=== PATIENT | male | born 1955 | race Caucasian/White ===

== ENCOUNTER → 2017-06-14 12:58 | Outpatient (CLI) | payer BC ==
--- NOTE | ~2017-06-14 | EC ---
PATIENT:PATRICIA SÁNCHEZ DATE OF SERVICE: 06/14/17 SEX: M MEDICAL RECORD: [id number] DATE OF : 59 LOCATION:[facility] AGE OF PATIENT: 61 ADMISSION DATE: 06/14/17 REFERRING PHYSICIAN: INTERPRETING PHYSICIAN: SHAHRAM ANTON MD ECHOCARDIOGRAM REPORT ECHO CHARGES 4 ECHO COMPLETE Date: 06/14 CLINICAL DIAGNOSIS: CP/HTN/DYSPNEA/ABNORMAL EKG ECHOCARDIOGRAPHIC MEASUREMENTS (adult normal given) AC root (d.<3.7cm) 3.2 cm LV Septum d (<1.2 cm> 0.9 cm Valve Excursion 2.1 cm LV Septum (systole) 1.2 cm Left Atria (s.<4.0cm> 3.2 cm LVPW d(<1.2cm) 1.3 cm RV (d.<2.3cm) 2.4 cm LVPW (sytole) 1.9 cm LV diastole(<5.6CM) 5.1 cm MV E-F(>70mm/sec) cm LV systole 3.3 cm LVOT Diameter 1.8 cm MV exc.(>10mm) cm Est.ejection fraction (50-75%) % DOPPLER: LVIT cm/sec A 74.0 cm/sec E 91.0 cm/sec LA cm/sec RVSP 33.0 mmHg LVOT 146 cm/sec AOP1/2T m/s Asc. Ao 188 cm/sec RVOT 82.0 cm/sec RA cm/sec PA 143 cm/sec AV Gradient Peak 14.1 mmHg AV Mean 6.0 mmHg AV Area 1.7 cm MV Gradient Peak 4.2 mmHg MV Mean 2.0 mmHg MV Area cm COMMENTS: Environmental Specialist: Jeffery CARROLLOE Monorail Helper: 4 Dr. Anton TAPE# PACS Pericardial Effusion N DATE OF SERVICE: PROCEDURE: Transthoracic echocardiogram. FINDINGS: 1. Left ventricular function appears to be preserved at 55%. There is no obvious regional wall motion abnormality. 2. The left atrium is normal size, normal function. 3. The aortic valve is normal. 4. The mitral valve has trace mitral regurgitation. ECHOCARDIOGRAM REPORT [id number] PATRICIA SÁNCHEZ 5. Tricuspid valve has trace tricuspid regurgitation. 6. The right ventricle is normal size, normal function. 7. The right atrium is normal. 8. Pulmonic valve is normal. 9. Inflow characteristics are normal. 10. There is mild left ventricular hypertrophy. CONCLUSIONS: Overall, normal echocardiogram with evidence of mild left ventricular hypertrophy. TRANSINT:[id number] Voice Confirmation ID: [id number] DOCUMENT ID: [id number] SHAHRAM ANTON MD at 1426 CC: [id number] DICTATION DATE: 06/15/17 1210 DISTRICT REPRESENTATIVE: 06/15/17 1244 DEP CLI 06/14/17 [address] [place] [address]
[~2017-06-14 12:58] MED LIST: COREG6.25 MG PO; LIPITOR40 MG PO; PLAVIX75 MG PO
[2017-07-06 07:50] VITALS: BMI 27.6
== END | disposition home or self-care (01) ==
LOC: D.ECHO 12:58
DX: R07.9 Chest pain, unspecified (principal); I10 Essential (primary) hypertension; R06.02 Shortness of breath; R94.31 Abnormal electrocardiogram [ECG] [EKG]; E78.5 Hyperlipidemia, unspecified

== ENCOUNTER → 2017-06-21 16:17 | Outpatient (CLI) | payer BC ==
[2017-06-21 16:45] LABS: CHOL - HDL RATIO 5.1 ratio (2.3-4.9); LDL-HDL RATIO 3.5 ratio (1.5-3.5)
[2017-07-06 07:50] VITALS: BMI 27.6
== END | disposition home or self-care (01) ==
LOC: D.LABREF 16:17
PROVIDERS: Internal Medicine Cardiovascular Disease
DX: E78.5 Hyperlipidemia, unspecified (principal)

== ENCOUNTER 2017-07-06 07:25 | Outpatient (CLI) | payer BC ==
[~2017-07-06] VITALS: Ht 177.8 cm; Wt 87.3 kg
--- NOTE | ~2017-07-06 | HEMODYNAMI ---
PATIENT:PATRICIA SÁNCHEZ MEDICAL RECORD: [id number] : 59 LOCATION:[facility] ADMISSION DATE: 07/06/17 Generatedon:07/06/201710:44 Patient name: PATRICIA SÁNCHEZ Patient #: [id number] SSN: DO B: 1955 Date of study: 07/06/2017 Page: Of Hemodynamic Procedure Report Patient Data Patient Demographics Procedure consent was obtained First Name: PATRICIA Gender: Male Last Name: PRINCESS : 1955 Middle Initial: DENISE Age: 61 year(s) Patient #: [id number] Race: Unknown Additional ID: [id number] Contact details [address]: [address] [place] [address] COURT State: [place] City: [place] Zip code: [address] Admission Admission Data Admission Date: 07/06/2017 Admission Time: 7:25 Procedure Procedure Types Cath Procedure Diagnostic Procedure LHC LHC w/Coronaries Sedation Charges Moderate Sedation up to 15 minutes Procedure Description Procedure Date Procedure Date: 07/06/2017 Procedure Start Time: 10:30 Procedure End Time: 10:39 Procedure Staff Name Function Edilson Tellez MD Performing Physician Nicolle Skinner RT Monitor Maureen Mueller RT Scrub Shena Vásquez RN Nurse Procedure Data Cath Procedure Fluoroscopy Diagnostic fluoroscopy Total fluoroscopy Time: 1.8 time: 1.8 min min Diagnostic fluoroscopy Total fluoroscopy dose: 412 dose: 412 mGy mGy Contrast Material Contrast Material Type Amount (ml) Isovue 300 49 Entry Location Entry Primary Successful Side Size Upsize Upsize Entry Closure Todd ccessful Closure Location (Fr) 1 (Fr) 2 (Fr) Remarks Device Remarks Radial Right 6 Fr Mechanical artery Short Compression Estimated blood loss: 5 ml Diagnostic catheters Device Type Used For End Catheter Placement DIAGNOSTIC Meridian 110cm 5 Multi-vessel Fr catheter ([id number]) Angiography Procedure Complications No complications Procedure Medications Medication Administration Route Dosage Oxygen NC 2 l/min Lidocaine 2% added to field 20 Heparin Flush Bag added to field 2 bags (1000units/500ml NS) 0.9% NaCl I.V. 100 ml/hr Radial Cocktail I.A. 1 syringe (Verapomil 2mg/Nitro 400mcg/Heparin 1500units) Versed I.V. 1 mg Fentanyl I.V. 50 mcg Versed I.V. 1 mg Fentanyl I.V. 50 mcg Hemodynamics Rest Heart Rate: 61 (bpm) Pressure Samples Time Site Value (mmHg) Purpose Heart Use Rate(bpm) 10:33 LV 122/-19,0 EDP 68 Gradients Valve Time Site Site Mean SEP/DFP Peak To Heart Use 1 2 (mmHg) (sec/min) Peak Rate (mmHg) (bpm) Aortic 10:34 LV AO 76 Snapshots Pre Cath Intra NCS Post Cath Vital Signs Time Heart Resp SPO2 etCO2 NIBP (mmHg) Rhythm Pain Sedation Rate (ipm) (%) (mmHg) Status Level (bpm) 10:20:05 62 15 99 35.3 160/85(134) NSR 0 (11) 10(A) , No pain 10:24:27 58 14 98 0 158/77(112) NSR 0 (11) 10(A) , No pain 10:28:51 58 14 98 30.8 155/80(111) NSR 0 (11) 10(A) , No pain 10:33:13 53 13 98 36 148/83(126) NSR 0 (11) 9(A) , No pain 10:37:29 73 13 96 37.5 141/79(112) NSR 0 (11) 10(A) , No pain Medications Time Medication Route Dose Verified Delivered Reason Notes Effectiveness by by 10:23:10 Oxygen NC 2 l/min Edilson Buffie used for Geoff colorado MD 10:23:17 Lidocaine 2% added 20ml Edilson Edilson for local to vial Geoff Tellez MD anesthetic field SCHNEIDER 10:23:23 Heparin Flush added 2 bags Edilson Edilson used for Bag to Geoff Tellez MD procedure (1000units/500ml field SCHNEIDER NS) 10:23:32 0.9% NaCl I.V. 100 Edilson Buffie Per ml/hr Geoff Vásquez RN physician 10:23:55 Versed I.V. 1 mg Edilson Buffie for sedation Geoff Vásquez RN, MD 10:24:01 Fentanyl I.V. 50 mcg Edilson Buffie for sedation Geoff Vásquez RN, MD 10:33:12 Radial Cocktail I.A. 1 Edilson Edilson for (Verapomil syringe Geoff Tellez MD vasodilation 2mg/Nitro MD 400mcg/Heparin 1500units) 10:33:22 Versed I.V. 1 mg Edilson Buffie for sedation Geoff Vásquez RN, MD 10:33:26 Fentanyl I.V. 50 mcg Edilson Chatterjee for sedation Geoff Vásquez RN, MD Procedure Log Time Note 9:59:34 Shena Vásquez RN sent for patient. Start room use. 9:59:35 Time tracking: Regular hours (M-F 7:00 - 5:00) 9:59:41 Plan of Care:Hemodynamics will remain stable., Cardiac rhythm will remain stable., Comfort level will be maintained., Respiratory function will remain adequate., Patient/ family verbilizes understanding of procedure., Procedure tolerated without complication., Recovers from procedure without complications.. 10:18:45 Patient received from Pre/Post Procedure Room to [facility] 2 Alert and oriented. Tansferred to table in Supine position. 10:18:46 Warm blankets applied, and lopez hugger turned on for patient comfort. 10:18:46 Correct patient and procedure confirmed by team. 10:18:48 Signed procedure consent form obtained from patient. 10:18:49 ECG and BP/O2 sat monitors applied to patient. 10:18:50 Vital chart was started 10:18:51 Baseline sample Acquired. 10:18:55 Rhythm: sinus rhythm 10:18:57 Full Disclosure recording started 10:19:01 H&P Date Dictated: 07/06/2017 Within 30 days and on chart., H&P Addendum completed by physician on day of procedure. (MUST COMPLETE FOR ALL OUTPATIENTS). 10:19:03 Pre-procedure instructions explained to patient. 10:19:03 Pre-op teaching completed and patient verbalized understanding. 10:19:04 Family in waiting room. 10:19:06 Patient NPO since Midnight. 10:19:08 Is the patient allergic to Iodine/contrast media? No. 10:19:09 Was the patient premedicated? No 10:19:10 Is patient on blood thinner?Yes 10:19:12 ACC The patient was administered the following blood thiners within the last 24 hours: ACCPlavix 10:19:15 Patient diabetic? No. 10:19:17 Previous problem with sedation/anesthesia? No ? 10:19:19 Snore? Yes 10:19:20 Sleep apnea? No 10:19:21 Deviated septum? No 10:19:21 Opens mouth fully? Yes 10:19:22 Sticks out tongue? Yes 10:19:24 Airway obstruction? No ? 10:19:27 Dentures? No ? 10:19:30 Pre procedure: right dorsailis pedis pulse 1+ Palpable, but thready & weak; easily obliterated 10:19:31 Pre procedure: left dorsailis pedis pulse 1+ Palpable, but thready & weak; easily obliterated 10:19:33 Patient pain scale 0/10 ?. 10:19:38 IV patent on arrival in left forearm with 0.9% NaCl at [facility]. 10:19:40 Lab results completed and on chart. 10:19:45 Right groin area was prepped with chlora-prep and draped in sterile fashion 10:19:46 Alarms reviewed by R. N. 10:19:46 Sharps counted by scrub and verified by R.N. 10:19:48 Physician arrived 10:19:49 --------ALL STOP TIME OUT------ 10:19:49 Final Timeout: patient, procedure, and site verified with staff and physician. All members of the team are in agreement. 10:19:51 Right groin site verified by team. 10:20:08 Physical assessment completed. ASA score P 2 - A patient with mild systemic disease as per Edilson Tellez MD. 10:20:11 Sedation plan: IV Moderate Sedation Medication:Versed, Fentanyl 10:21:24 Use device set Radial Dx or PCI 10:21:25 ACIST Syringe (54028) opened to sterile field. 10:21:25 Medline Cath Pack ([id number]) opened to sterile field. 10:21:26 Bag Decanter () opened to sterile field. 10:21:26 DIAGNOSTIC WIRE .035 260cm J wire ([id number]) opened to sterile field. 10:21:27 ACIST Hand Control (83261) opened to sterile field. 10:21:27 ACIST Manifold (72920) opened to sterile field. 10:21:27 Tegaderm 4 x 4 (1626W) opened to sterile field. 10:21:29 MBrace Wrist Support ([id number]) opened to sterile field. 10:21:30 SHEATH 6Fr Prelude Radial ([id number]) opened to sterile field. 10:23:10 Oxygen 2 l/min NC was administered by Shena Vásquez RN; used for procedure; 10:23:17 Lidocaine 2% 20ml vial added to field was administered by Edilson Tellez MD; for local anesthetic; 10:23:23 Heparin Flush Bag (1000units/500ml NS) 2 bags added to field was administered by Edilson Tellez MD; used for procedure; 10:23:32 0.9% NaCl 100 ml/hr I.V. was administered by Shena Vásquez RN; Per physician; 10:23:55 Versed 1 mg I.V. was administered by Shena Vásquez RN; for sedation; 10:24:01 Fentanyl 50 mcg I.V. was administered by Shena Vásquez RN; for sedation; 10:30:26 Procedure started. 10:30:53 Local anesthetic to right radial artery with Lidocaine 2% by Edilson Tellez MD.INITIAL ACCESS ONLY 10:31:02 A 6 Fr Short sheath was inserted into the Right Radial artery 10:33:01 A DIAGNOSTIC Meridian 110cm 5 Fr catheter ([id number]) was advanced over the wire and used for Multi-vessel Angiography. 10:33:12 Radial Cocktail (Verapomil 2mg/Nitro 400mcg/Heparin 1500units) 1 syringe I.A. was administered by Edilson Tellez MD; for vasodilation; 10:33:22 Versed 1 mg I.V. was administered by Shena Vásquez RN; for sedation; 10:33:26 Fentanyl 50 mcg I.V. was administered by Shena Vásquez RN; for sedation; 10:33:39 LV hemodynamics recorded. 10:33:41 LV gram done using [facility] 10:33:46 Injector settings: Ml/sec: 12, Volume: 8, 10:34:07 EF : 60 % 10:36:08 LCA angiography performed. 10:36:10 Injector settings: Ml/sec: 3, Volume: 6, 10:36:44 RCA angiography performed. 10:36:47 Injector settings: Ml/sec: 3, Volume: 6, 10:37:53 Catheter removed. 10:37:55 TR BAND Standard ([id number]) opened to sterile field. 10:38:30 Sheath removed intact; hemostasis achieved with Mechanical Compression to the Right Radial artery. 10:38:31 Procedure ended.(Physican Out) 10:38:48 Fluoroscopy time 01.80 minutes. 10:38:53 Flurop Dose total: 412 10:38:53 Fluoroscopy dose: 412 mGy 10:38:56 Contrast amount:Isovue 300 49ml. 10:38:58 Sharps counted by scrub and verified by R.N. 10:39:01 TR band inflated with 10cc of air. 10:39:02 Insertion/operative site no bleeding no hematoma. 10:39:07 Post right radial artery:stable 10:39:09 Post Procedure Pulses reassessed and unchanged 10:39:11 Post procedure rhythm: unchanged. 10:39:13 Estimated blood loss: 5 ml 10:39:15 Post procedure instruction explained to patient.Patient verbalizes understanding. 10:39:15 Patient needs reinforcement of post procedure teaching. 10:39:32 Procedure type changed to Cath procedure, Diagnostic procedure, LHC, LHC w/Coronaries, Sedation Charges, Moderate Sedation up to 15 minutes 10:39:32 Procedure and supply charges have been captured, reviewed, submitted and are correct. 10:39:36 Procedure Complication : No complications 10:39:38 Vital chart was stopped 10:39:39 See physician's report for complete and final results. 10:39:42 Report given to Pre/Post Procedure Room. 10:39:45 Patient transfered to Pre/Post Procedure Room with Stretcher. 10:39:47 Procedure ended. 10:39:47 Full Disclosure recording stopped 10:39:51 End room use (Document Last) Device Usage Item Name Manufacture Quantity Catalog Number Hospital Part Current M inimal Lot# / Charge Number Stock Stock Serial# Code ACIST Syringe Acist 1 68989 519502 696162 [id number] 2 0 (33407) Medical [employer] Medline Cath Cardinal 1 [id number] 674347 36180 134201 5 [employer] ([id number]) Bag Decanter Microtek 1 368528 37521 044312 5 () Medical Inc. DIAGNOSTIC WIRE St Omar 1 192014 756813 884318 510126 3 0 .035 260cm J wire (731599) ACIST Hand Acist 1 37309 042536 152539 803850 5 Control (72761) Medical [employer] Inc ACIST Manifold Acist 1 79415 170839 588491 783361 5 (45578) [employer] Inc Tegaderm 4 x 4 3M 1 1626W 947356 665460 985289 5 (1626W) MBrace Wrist Advanced 1 140-0250-00 718281 16371 342710 5 Support Vascular ([id number]) Dynamics SHEATH 6Fr Merit 1 [id number] 533774 152481 294832 5 Prelude Radial Medical ([id number]) DIAGNOSTIC Terumo 1 08-2908 213451 682280 145415 5 Meridian 110cm 5 Fr catheter (922795) TR BAND Terumo 1 [id number] 231026 459038 421270 4 0 Standard ([id number]) Signature Audit [place] Stage Time Signature Unsigned Intra-Procedure 07/06/2017 Nicolle Skinner 10:44:25 AM RT(R) Signatures Monitor : Nicolle Skinner RT Signature : Date : Time : [facility] [address] [place] [address]
[2017-07-06] MEDS ORDERED: COREG6.25 MG PO (07:40)
[2017-07-06] MEDS ORDERED: PLAVIX75 MG PO (07:40)
[2017-07-06] MEDS ORDERED: LIPITOR40 MG PO (07:41)
[2017-07-06 07:50] VITALS: BP 131/83; Ht 177.8 cm; Wt 87.3 kg
[2017-07-06 08:13] LABS: CALC OSMOLALITY 284 mosm/kg (275-300); CARBON DIOXIDE 23.2 mmol/L (21.0-32.0); CHLORIDE - SERUM 108 mmol/L (98-107); GLUCOSE 118 mg/dL (74-106); POTASSIUM - SERUM 4.4 mmol/L (3.5-5.1); SODIUM 142 mmol/L (136-145); UREA NITROGEN 15 mg/dL (7-18); eGFR NON AFRICAN AMERICAN 81 mL/min (90-120)
[2017-07-06 08:20] LABS: BASOPHILS 0.5 % (0-2); EOSINOPHILS 1.7 % (0-7); HEMATOCRIT 36.4 % (42.0-54.0); HEMOGLOBIN 12.4 g/dL (13.5-17.5); IMMATURE GRANULOCYTES 0.2 % (0-5); LYMPHOCYTES 26.1 % (15-50); MCH 30.8 pg (26.0-34.0); MCHC 34.1 g/dL (31.0-37.0); MCV 90.3 fL (80.0-100.0); MEAN PLATELET VOLUME 9.7 fL (7.4-10.4); MONOCYTES 7.8 % (2-11); NEUTROPHILS 63.7 % (40-80); PLATELET COUNT 281 10x3/uL (130-400); RBC 4.03 10x6/uL (4.20-6.10); RDW 12.6 % (11.5-14.5); WBC 5.7 10x3/uL (4.8-10.8)
== END 2017-07-06 13:00 | disposition home or self-care (01) ==
LOC: D.CATH 07:25
PROVIDERS: Internal Medicine Cardiovascular Disease
DX: I25.10 Atherosclerotic heart disease of native coronary artery without angina pectoris (principal); R94.39 Abnormal result of other cardiovascular function study; Z01.812 Encounter for preprocedural laboratory examination

== ENCOUNTER → 2017-08-12 17:10 | Outpatient (CLI) | payer BC ==
[2017-07-06 07:50] VITALS: BMI 27.6
[2017-08-12 19:03] LABS: CHOL - HDL RATIO 3.3 ratio (2.3-4.9); LDL-HDL RATIO 1.9 ratio (1.5-3.5)
== END | disposition home or self-care (01) ==
LOC: D.LABREF 17:10
PROVIDERS: Internal Medicine Cardiovascular Disease
DX: E78.5 Hyperlipidemia, unspecified (principal)

== ENCOUNTER → 2017-08-23 19:34 | Outpatient (CLI) | payer BC ==
[2017-07-06 07:50] VITALS: BMI 27.6
== END | disposition home or self-care (01) ==
LOC: D.SLEEP 19:34
DX: G47.30 Sleep apnea, unspecified (principal)